=== PATIENT | male | born 1985 | race Two or more races ===

== ENCOUNTER → 2023-07-15 | Outpatient (CLI) | payer OTHER ==
[2023-07-15 21:05] LABS: COVID19 ANTIGEN SOFIA FIA POSITIVE (NEGATIVE)
== END | disposition home or self-care (01) ==
LOC: LAB 19:45
PROVIDERS: ATTEND Internal Medicine
DX: U07.1 COVID-19 (principal)
CPT/HCPCS: 36415; 87426